=== PATIENT | male | born 1990 | race Caucasian/White ===

== ENCOUNTER 2022-01-10 11:25 | Outpatient (CLI) | payer BC ==
[2022-01-10 23:37] LABS: SARS-CoV-2 PCR by NAA Not Detected (NotDetected)
== END 2022-01-10 11:26 | disposition home or self-care (01) ==
LOC: CSHLAB 11:25
PROVIDERS: ATTEND Surgery
DX: Z20.822 Contact with and (suspected) exposure to COVID-19 (principal)
CPT/HCPCS: U0003; U0005

== ENCOUNTER 2022-01-13 10:05 | Day surgery (SDC) | payer BC ==
[2022-01-11 09:58] VITALS: BMI 35.5
[2022-01-13] MEDS ORDERED: Lidocaine 1% MPF 2 ML VIAL ONE (10:31)
[2022-01-13] MEDS ORDERED: Bupivacaine PF 0.5% 30 ML VIAL ONE (10:40)
[2022-01-13] MEDS ORDERED: ceFAZolin 2 GM/Dextrose 50 ML IVPB ONE (11:18)
[2022-01-13] MEDS ORDERED: PROPOFOL 0 ML ONE (11:18)
[2022-01-13] MEDS ORDERED: Lidocaine 1% PF 5 ML VIAL ONE (11:19)
[2022-01-13] MEDS ORDERED: Fentanyl 100 MCG/2 ML VIAL ONE (11:19)
[2022-01-13] MEDS ORDERED: Ketamine 50 MG/ML (10ML VIAL) ONE (11:26)
[2022-01-13] MEDS ORDERED: Midazolam HCl 2 mg/2 ml Vial ONE (11:28)
[2022-01-13] MEDS ORDERED: Glycopyrrolate 0.2 MG/ML 5 ML SYRINGE ONE (11:40)
[2022-01-13] MEDS ORDERED: PROPOFOL 20 ML ONE (11:40)
[2022-01-13] MEDS ORDERED: Ondansetron PF 4 MG/2 ML Vial ONE (11:58)
[2022-01-13] MEDS ORDERED: EPINEPHrine 1 MG/ML AMP ONE (12:00)
[2022-01-13] MEDS ORDERED: HYDROcodone/Acetaminophen 5/325 mg Tablet PO PRN (12:42)
[2022-01-13] MEDS ORDERED: Acetaminophen 325 MG TAB PO PRN (12:42)
== END 2022-01-13 13:15 | disposition home or self-care (01) ==
LOC: CSHSDC 10:05
PROVIDERS: ATTEND Surgery
DX: C83.31 Diffuse large B-cell lymphoma, lymph nodes of head, face, and neck (principal); I10 Essential (primary) hypertension
CPT/HCPCS: 88184; 88305; 88341; 88342; 88360; J0171; J0690; J2250; J2405; J2704; J3010; S0020